=== PATIENT | female | born 2000 | race Caucasian/White ===

== ENCOUNTER 2024-03-14 12:36 | Emergency (ER) | payer BC ==
[~2024-03-14] VITALS: Ht 154.9 cm; Wt 55.5 kg
[2024-03-14 13:15] LABS: BASO # 0.01 K/mm3 (0.02-0.10); EOS # 0.04 K/mm3 (0.04-0.40); EOS % 0.8 % (1.0-5.0); HEMATOCRIT 42.9 % (37.0-47.0); HEMOGLOBIN 14.4 g/dL (12.5-16.0); LYMPH# 1.32 K/mm3 (1.50-4.00); MEAN CELL VOLUME 88 fl (78-100); MEAN CORPUSCULAR HEMOGLOBIN 29 pg (27-31); MEAN CORPUSCULAR HGB CONC 34 g/dL (33-37); MEAN PLATELET VOLUME 9.4 fl (7.4-10.4); PLATELET COUNT 232 K/mm3 (130-400); RED CELL DISTRIBUTION WIDTH 12.4 % (11.5-14.5); WHITE BLOOD COUNT 5.3 K/mm3 (4.8-10.8)
[2024-03-14 13:24] LABS: ALBUMIN 4.7 g/dL (3.5-5.0)
[2024-03-14 13:25] LABS: SODIUM 140 mmol/L (136-145); TOTAL PROTEIN 7.2 g/dL (6.4-8.3)
[2024-03-14 13:26] LABS: CALCIUM 9.3 mg/dL (8.3-10.5)
[2024-03-14 13:27] LABS: GLUCOSE 179 mg/dL (65-105)
[2024-03-14 13:28] LABS: CARBON DIOXIDE 19 mmol/L (22-29)
[2024-03-14 13:29] LABS: TOTAL BILIRUBIN 0.5 mg/dL (0.2-1.2)
[2024-03-14 13:30] LABS: AST-SGOT 16 U/L (5-34)
[2024-03-14 13:31] LABS: ALT/SGPT 11 U/L (0-55)
[2024-03-14 13:33] LABS: ACETAMINOPHEN < 1 ug/mL
[2024-03-14 13:56] LABS: URINE APPEARANCE CLEAR (CLEAR); URINE BILIRUBIN NEGATIVE (NEGATIVE); URINE BLOOD NEGATIVE (NEGATIVE); URINE COLOR YELLOW (YELLOW); URINE GLUCOSE NEGATIVE (NEGATIVE); URINE KETONE NEGATIVE (NEGATIVE); URINE LEUKOCYTE ESTERASE NEGATIVE (NEGATIVE); URINE NITRATE NEGATIVE (NEGATIVE); URINE PROTEIN(semi-quant) NEGATIVE (NEGATIVE); URINE WBC 0-1 /hpf (0-3)
--- NOTE | 2024-03-14 16:09 | NUR ---
PATIENTS MOTHER IN ROOM AT BEDSIDE. PATIENTS MOTHER HAS SAID TO PATIENT THAT SHE NEEDS TO CONVINCE [place] [facility] THAT SHE WON'T HARM HERSELF. CHARGE NURSE HAS BEEN NOTIFIED.
[2024-03-14 16:40] VITALS: BP 140/108
[2024-03-14 18:49] VITALS: BP 138/101
== END 2024-03-14 18:20 | disposition home or self-care (01) ==
LOC: ED 12:36
PROVIDERS: Nurse Practitioner Family
DX: T42.6X2A Poisoning by other antiepileptic and sedative-hypnotic drugs, intentional self-harm, initial encounter (principal); T45.0X2A Poisoning by antiallergic and antiemetic drugs, intentional self-harm, initial encounter